=== PATIENT | male | born 1970 | race Caucasian/White ===

== ENCOUNTER 2018-02-07 08:34 | Emergency (ER) | payer MEDICAID, OTHER ==
[2018-02-07 08:44] VITALS: BP 141/98
[2018-02-07] MEDS ORDERED: IBUPROFEN 200 MG TAB PO ONE (08:46)
--- NOTE | 2018-02-07 09:18 | EDPHY ---
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 He was lifting and twisting at the same time and felt pain in his back low on the right side. It got progressively worse over the night and has been quite painful. He was able to report the injury to his boss the next day. He was advised to be evaluated and presented today for evaluation. He states the pain is slightly better than yesterday but still uncomfortable. He denies numbness or tingling in his extremities. He has no saddle paresthesias. He has had no incontinence. REVIEW OF SYSTEMS: Negative except per HPI. General Appearance: Alert, no distress. Eyes: Pupils equal and round no icterus Respiratory: No respiratory distress Neurological: Awake, alert, no focal deficits. Skin: Warm and dry, no rashes. Musculoskeletal: Neck is supple nontender. Extremities are symmetrical, full range of motion, no edema. Tenderness to palpation in the region of the right sacral iliac joint. Normal straight leg raise. Normal reflexes, no clonus. Normal sensation and pulses distally. Psychiatric: Patient is oriented X 3, there is no agitation. Medical/surgical history: History of hernia surgery. Social history: Nonsmoker. Rare EtOH. Smoking Status: Never smoked Constitutional: Initial Vital Signs Temperature (C) 36.6 C 02/07/18 08:38 Heart Rate 79 02/07/18 08:38 Respiratory Rate 16 02/07/18 08:38 Blood Pressure 141/98 H 02/07/18 08:38 O2 Sat (%) 94 02/07/18 08:38 O2 Delivery Mode Room Air Allergies/Adverse Reactions: No Known Allergies Allergy (Verified 02/07/18 08:38) Home Medications: Medication Instructions Recorded NK [No Known Home Meds] 02/07/18 Medical Decision Making Differential Diagnosis: Differential diagnosis includes but is not limited to musculoskeletal back pain , cauda equina, disc disease, intra-abdominal or peritoneal process. After evaluation suspect musculoskeletal back pain with unremarkable history of body motion causing onset of pain. No other high-risk features to warrant imaging. Discussed conservative care and follow up with [facility] before resuming full activity at work. Stable for discharge. - Data Points Medications Given: Discontinued Medications Ibuprofen (Motrin) 600 mg PO EDNOW ONE Stop: 02/07/18 08:47 Last Admin: 02/07/18 08:51 Dose: 600 mg Departure - Departure Disposition: Home, Routine, Self-Care Clinical Impression: Low back strain Qualifiers: Encounter type: initial encounter Qualified Code(s): S39.012A - Strain of muscle, fascia and tendon of lower back, initial encounter Condition: Good Instructions: Low Back Strain (ED) Additional Instructions: Activity as tolerated. Use ibuprofen as discussed as well as ice frequently. No heat or massage for 4-5 days after injury. Physical therapy may be beneficial. Follow up with your workmen's comp clinic for clearance to full work duties and referral to physical therapy. Referrals: NONE *PRIMARY CARE P,. [Primary Care Provider] - As per Instructions
== END 2018-02-07 09:25 | disposition home or self-care (01) ==
LOC: CED 08:34
DX: S39.012A Strain of muscle, fascia and tendon of lower back, initial encounter (principal); X50.0XXA Overexertion from strenuous movement or load, initial encounter; Y99.9 Unspecified external cause status; Y92.9 Unspecified place or not applicable; Y93.89 Activity, other specified

== ENCOUNTER 2018-02-18 15:13 | Emergency (ER) | payer OTHER ==
--- NOTE | 2018-02-18 15:27 | EDPHY ---
H & P Time Seen by Provider: 02/18/18 15:21 HPI/ROS: CHIEF COMPLAINT: Facial weakness HISTORY OF PRESENT ILLNESS: Patient little bit of a headache last night which is resolved. He thought his eye felt a little bit funny last night but that also resolved. He was talking on the phone at 2:00 p.m. Today when he realized he was having difficulty speaking. It is associated with the right side of his face feeling weak and difficulty closing his right eye. Not associated currently with headache, weakness or numbness in extremities, difficulty with thought or balance. REVIEW OF SYSTEMS: Eye: no change in vision ENT: no sore throat Cardiac: no chest pain or syncope Pulmonary: no cough or SOB Abdomen: no vomiting, diarrhea, abdominal pain Musculoskeletal: No neck pain Skin: no rash Neuro: HPI Constitutional: no fever : no urinary symptoms A comprehensive 10 point review of systems is otherwise negative aside from elements mentioned in the history of present illness. PAST MEDICAL HISTORY: Hernia surgery as a child. Social history: No drugs or alcohol General Appearance: Alert and conversant, cooperative. Eyes: No scleral icterus. Pupils equal reactive extraocular motion intact, he does have a right ptosis. ENT, Mouth: Normal mucous membranes. Respiratory: Normal respiratory effort, breath sounds equal, lungs are clear to auscultation. Cardiovascular: Regular rate and rhythm. Gastrointestinal: Abdomen is soft and non tender. Neurological: Alert, normal motor and sensory in extremities, fluent speech. He has a right facial droop which does partly involve his right forehead and associated with inability to fully close his right eyelid. Skin: Warm and dry, no rashes. No evidence of shingles or zoster. Musculoskeletal: No peripheral edema. Psychiatric: Not agitated. Emergency Department course/MDM: I-STAT and noncontrast head CT, felt by myself to be more likely Aguilar's palsy and not an acute stroke. CT to evaluate for intracranial mass, bleed, subacute ischemic stroke. Noted to be hypertensive on arrival. 1534: normal head CT per Timothy. 165/114 at 1537. 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 Recommended MRI brain and MR angio, discharge with treatment for peripheral 7th nerve if MRI studies are normal. Plan discussed with the patient and consented. 1725: Negative MR angiogram per Jose Carlos. 1740: MRI head negative for Helgans. Results discussed with patient. Steroids and Neurology office follow-up discussed with the patient. Smoking Status: Never smoked Constitutional: Initial Vital Signs Temperature (C) 36.8 C 02/18/18 15:20 Heart Rate 98 02/18/18 15:20 Respiratory Rate 18 02/18/18 15:20 Blood Pressure 201/121 H 02/18/18 15:20 O2 Sat (%) 95 02/18/18 15:20 O2 Delivery Mode Room Air Allergies/Adverse Reactions: No Known Allergies Allergy (Verified 02/07/18 08:38) Home Medications: Medication Instructions Recorded predniSONE [prednisone 20mg (RX)] 60 mg PO DAILY 7 Days tab 02/18/18 Medical Decision Making - Diagnostics EKG Interpretation: 12-lead EKG interpreted by me; official reading is in computer system. My interpretation is sinus rhythm with borderline right axis, otherwise normal intervals and no ischemic changes. Imaging Results: Imaging Impressions Head CT 02/18/18 15:26 Impression: 1. No acute intracranial findings. If symptoms persist and clinical suspicion warrants, consider MRI. 2. Benign-appearing parenchymal calcifications. Findings discussed with ABRAHAM GUZMAN 02/18/2018 at 1533. Brain MRI 02/18/18 15:54 Impression: Normal. No intracranial hemorrhage, ischemia, or mass. Findings discussed with Emergency Department physician, Abraham Guzman on 02/18/2018 , 17:35. Head MRA 02/18/18 15:55 Impression: Normal [place]. No occlusion or aneurysm. Findings discussed with Emergency Department physicianAbraham on 02/18/2018 , 17:36. Neck MRA 02/18/18 15:55 Impression: Patent bilateral vertebral and carotid arteries. The origin of vertebral arteries are suboptimally visualized. Findings discussed with Emergency Department physician, Abraham Guzman on 02/18/2018 , 17:26. Imaging: Discussed imaging studies w/ aerial lineman Radiologist Differential Diagnosis: Differential considered including but not limited to Aguilar's palsy, Nehemiah's paralysis, ischemic stroke, intracranial mass or bleed. - Data Points Laboratory Results: 02/18/18 15:26 POC Hgb 17.0 gm/dL gm/dL (13.7-17.5) POC Hct 50 % % (40-51) POC Sodium 142 mEq/L mEq/L (135-145) POC Potassium 3.8 mEq/L mEq/L (3.3-5.0) POC Chloride 102 mEq/L mEq/L (97-110) POC BUN 21 mg/dL mg/dL (7-23) POC Creatinine 1.0 mg/dL mg/dL (0.7-1.3) POC Glucose 100 mg/dL mg/dL (70-100) Point of Care Test Results: Chemistry 02/18/18 15:26 POC Sodium 142 mEq/L mEq/L (135-145) POC Potassium 3.8 mEq/L mEq/L (3.3-5.0) POC Chloride 102 mEq/L mEq/L (97-110) POC BUN 21 mg/dL mg/dL (7-23) POC Creatinine 1.0 mg/dL mg/dL (0.7-1.3) POC Glucose 100 mg/dL mg/dL (70-100) ISTAT H&H 02/18/18 15:26 POC Hgb 17.0 gm/dL gm/dL (13.7-17.5) POC Hct 50 % % (40-51) Departure - Departure Disposition: Home, Routine, Self-Care Clinical Impression: Aguilar palsy Condition: Good Instructions: Aguilar Palsy (ED) Referrals: Jomar Abbasi DO [Doctor of Osteopathy] - 5-7 days, call for appt. Prescriptions: predniSONE [prednisone 20mg (RX)] 60 mg PO DAILY 7 Days tab
--- NOTE | 2018-02-18 15:41 | CPEKG ---
Test Reason : OPEN Blood Pressure : / mmHG Vent. Rate : 088 BPM Atrial Rate : 088 BPM P-R Int : 130 ms QRS Dur : 103 ms QT Int : 356 ms P-R-T Axes : 064 090 035 degrees QTc Int : 431 ms Sinus rhythm Borderline right axis deviation Confirmed by Sergio Justice ([id number]) on 02/18/2018 3:40:30 PM Referred By: Confirmed By:Sergio Justice
[2018-02-18 17:44] VITALS: BP 169/112
== END 2018-02-18 17:49 | disposition home or self-care (01) ==
DX: G51.0 Bell's palsy (principal)
CPT/HCPCS: 82435-PO; 82565-PO; 82947-PO; 84132-PO; 84295-PO; 84520-PO; 85014-PO